=== PATIENT | male | born 1970 ===

== ENCOUNTER 2025-05-30 06:24 | Day surgery (SDC) | payer BC, SELFPAY | END 2025-05-30 14:55 | disposition home or self-care (01) | LOC: GI 06:24 | PROVIDERS: ATTENDING PHYSICIAN Internal Medicine Gastroenterology | DX: Z12.11 Encounter for screening for malignant neoplasm of colon (principal); D12.3 Benign neoplasm of transverse colon; Z85.048 Personal history of other malignant neoplasm of rectum, rectosigmoid junction, and anus; Z93.3 Colostomy status | CPT/HCPCS: 44389; 88305 ==